=== PATIENT | male | born 1975 | race Caucasian/White ===

== ENCOUNTER 2020-12-31 14:05 | Emergency (ER) | payer SELFPAY ==
--- NOTE | 2020-12-31 14:22 | EDM.PDOC ---
ED HPI GENERAL MEDICAL PROBLEM - General Stated Complaint: CUT ARM Time Seen by Provider: 12/31/20 14:10 Source of Information: Reports: Patient History Limitations: Reports: No Limitations - History of Present Illness INITIAL COMMENTS - FREE TEXT/NARRATIVE: Patient presented to the ED because of a left forearm laceration. He fell from a ladder and his arm landed on the sharp edge of the ladder and sustained a 3 cm laceration left forearm. ED ROS GENERAL - Review of Systems Review Of Systems: See Below Constitutional: Reports: No Symptoms HEENT: Reports: No Symptoms Respiratory: Reports: No Symptoms Cardiovascular: Reports: No Symptoms Endocrine: Reports: No Symptoms GI/Abdominal: Reports: No Symptoms : Reports: No Symptoms Musculoskeletal: Reports: No Symptoms Skin: Reports: Wound Neurological: Reports: No Symptoms Psychiatric: Reports: No Symptoms Hematologic/Lymphatic: Reports: Other ED EXAM, UPPER BACK/NECK PAIN - Physical Exam Exam: See Below Exam Limited By: No Limitations General Appearance: Alert, No Apparent Distress Ears Exam: Normal External Exam, Normal Canal, Hearing Grossly Normal, Normal TMs Nose Exam: Normal Inspection, Normal Mucousa, No Blood Throat/Mouth Exam: Normal Inspection, Normal Lips, Normal Teeth, Normal Gums Head Exam: Atraumatic, Normocephalic Neck Exam: Non-Tender, Full Range of Motion, Normal Alignment Cardiovascular/Respiratory: Regular Rate, Rhythm, No M/R/G, Normal Peripheral Pulses, Normal Breath Sounds GI/Abdominal: Normal Bowel Sounds, Soft, Non-Tender, No Organomegaly Back Exam: Normal Inspection, Full Range of Motion Extremities: Normal Inspection, Normal Range of Motion, Non-Tender, No Pedal Edema, Normal Capillary Refill 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, No Motor/Sensory Deficits, Oriented x 3 Psychiatric: Normal Affect, Normal Mood Skin Exam: Normal Color, Other (3 cm laceration left forearm ventral aspect) ED LACERATION/WOUND PROCEDURES - Laceration/Wound Repair Left Arm Laceration/Wound Length In cm: 3 Appearance: Subcutaneous Distal NVT: Neuro & Vascular Intact Anesthetic Type: Local Local Anesthesia - Lidocaine (Xylocaine): 2% Plain Local Anesthetic Volume: 3cc Skin Prep: Chlorhexidine (Hibiciens), Saline Wound Exploration, Debridement, Revision: Wound Explored Suture Size: 3-0 # of Sutures: 5 Suture Type: Nylon Course - Vital Signs Text/Narrative:: UTD with immunization Last Recorded V/S: Last Vital Signs Temp 35.1 C L 12/31/20 14:05 Pulse 104 H 12/31/20 14:40 Resp 18 12/31/20 14:40 BP 157/76 H 12/31/20 14:40 Pulse Ox 96 12/31/20 14:40 - Orders/Labs/Meds Meds: Medications Discontinued Medications Generic Name Dose Route Start Last Admin Trade Name Martha PRN Reason Stop Dose Admin Albuterol/Ipratropium 3 ml 12/31/20 14:31 Albuterol/Ipratropium 3.0-0.5 Mg/3 Ml Neb Soln NEB 12/31/20 14:32 NOW STA Morphine Sulfate 2 mg 12/31/20 14:31 Morphine 2 Mg/Ml Syringe IVPUSH 12/31/20 14:32 NOW STA Departure - Departure Time of Disposition: 14:30 Disposition: Home, Self-Care 01 Condition: Good Clinical Impression: Laceration - Discharge Information Instructions: Laceration Care, Adult, [id number] Referrals: PCP,None [Primary Care Provider] - Forms: ED Department Discharge Additional Instructions: Please read discharge instructions on Laceration/Wound care No need to apply an antibiotic ointment Do not cover your wound when you are inside the house, cover it when you're outside Check for infection: redness that is moving outwards from where the wound is, swelling, increasing pain , pus discharge, fever Removal of suture in 10 days at your clinic
[2020-12-31] MEDS ORDERED: Morphine 2 MG/ML SYRINGE IVPUSH STA (14:31)
[2020-12-31] MEDS ORDERED: Albuterol/Ipratropium 3.0-0.5 MG/3 ML Neb Soln NEB STA (14:31)
== END 2020-12-31 14:45 | disposition home or self-care (01) ==
LOC: FB.ED 14:05
DX: S51.812A Laceration without foreign body of left forearm, initial encounter (principal); W11.XXXA Fall on and from ladder, initial encounter
CPT/HCPCS: 12002; 99282-25